=== PATIENT | male | born 1940 | race Caucasian/White ===

== ENCOUNTER 2024-12-06 13:17 | Emergency (ER) | payer MEDICARE ==
[~2024-12-06] VITALS: Ht 175.3 cm; Wt 81.6 kg
[2024-12-06] VITALS (12 sets, daily range): BP systolic 132–162; BP diastolic 64–79
[2024-12-06] MEDS ORDERED: METHOCARBAMOL 500 MG/TAB PO ONE (14:15)
[2024-12-06 14:41] LABS: BASO% 0.6 % (0-3); EOS% 2.5 % (0-8); HEMATOCRIT 42.9 % (39.0-50.0); HEMOGLOBIN 14.1 g/dl (14.0-18.0); IMMATURE GRANULOCYTES 0.3 % (0.0-5.0); LYMPH% 23.4 % (15-41); MEAN CELL VOLUME 93.5 fL CALC (80.0-100.0); MEAN CORPUSCULAR HGB 30.7 pG CALC (26.0-32.0); MEAN CORPUSCULAR HGB CONC 32.9 g/dL CAL (32.0-36.0); NEUT# 4.05 thou/uL (1.82-7.42); NEUT% 64.2 % (42-76); RED BLOOD COUNT 4.59 mill/uL (4.70-6.10); RED CELL DISTRI WIDTH 12.6 % (11.5-15.5)
[2024-12-06 15:04] LABS: ALBUMIN 4.2 g/dL (3.2-5.0); BILIRUBIN, TOTAL 0.7 mg/dL (0.2-1.3); CREATININE 1.5 mg/dL (0.7-1.3); POTASSIUM 4.6 mmol/l (3.5-5.1); TOTAL PROTEIN 7.3 g/dL (6.3-8.2)
[2024-12-06] MEDS ORDERED: KETOROLAC TROMETHAMINE 30 MG/ML SDV IM ONE (15:10)
[2024-12-06 15:15] LABS: URINE BILIRUBIN - DIPSTICK Negative (NEGATIVE); URINE BLOOD DIPSTICK Negative (NEGATIVE); URINE GLUCOSE - DIPSTICK Negative (NEGATIVE); URINE KETONE Negative (NEGATIVE); URINE LEUK ESTERASE Negative (NEGATIVE); URINE NITRITE - DIPSTICK Negative (Negative); URINE PH 5.5 (4.5-8.0); URINE PROTEIN - DIPSTICK Negative (NEG-TRACE); URINE SPECIFIC GRAVITY 1.015; URINE UROBILINOGEN - DIPSTICK 0.2 E.U./dL (0.2)
[2024-12-06 15:16] LABS: URINE COLOR Yellow
[2024-12-06] MEDS ORDERED: oxyCODONE 5MG/ ACETAMINOPHEN 325MG TAB PO ONE (17:30)
[2024-12-06] MEDS ORDERED: CYCLOBENZAPRINE HCL 5 MG TAB PO ONE (17:30)
[2024-12-06] MEDS ORDERED: LIDOCAINE PATCH 55 % TD (18:17)
[2024-12-06] MEDS ORDERED: PERCOCET 5/321 COMBO PO (18:17)
[2024-12-06] MEDS ORDERED: FLEXERIL5 M1 PO (18:18)
[2024-12-06] MEDS ORDERED: KETOROLAC TROMETHAMINE 30 MG/ML SDV IM SCH (22:00)
== END 2024-12-06 19:03 | disposition home or self-care (01) ==
LOC: ED 13:17
PROVIDERS: Nurse Practitioner Family
DX: S22.41XA Multiple fractures of ribs, right side, initial encounter for closed fracture (principal); I10 Essential (primary) hypertension; W18.2XXA Fall in (into) shower or empty bathtub, initial encounter; Y93.E1 Activity, personal bathing and showering; Y92.002 Bathroom of unspecified non-institutional (private) residence as the place of occurrence of the external cause; Z79.82 Long term (current) use of aspirin